=== PATIENT | female | born 1995 | race Caucasian/White ===

== ENCOUNTER → 2020-04-27 18:02 | Outpatient (BNVA) | payer BC, SELFPAY | PROVIDERS: Family Provider Family Medicine; PCP Family Medicine; Visit Provider Family Medicine | DX: N91.1 Secondary amenorrhea (principal); E03.9 Hypothyroidism, unspecified; Z13.1 Encounter for screening for diabetes mellitus; Z87.42 Personal history of other diseases of the female genital tract | CPT/HCPCS: 80048; 81000; 81025; 83001; 83002; 84146; 84403; 84443; 84450 ==

== ENCOUNTER 2020-05-18 12:46 | Outpatient (CLI) | payer BC, SELFPAY ==
--- NOTE | 2020-05-18 12:45 | US_ITS ---
WS: [id number] TRANSABDOMINAL PELVIC AND TRANSVAGINAL PELVIC ULTRASOUND HISTORY: 12 month no periods, last delivery 2 yrs ago, hx cyst COMPARISON: None available. Uterus: 8.0 cm x 3.7 cm x 2.7 cm. Normal size anteverted uterus. Endometrium: 1.1 cm. Normal homogeneity. Right ovary: 3.5 cm x 3.4 cm x 2.3 cm. Normal size ovaries. There are multiple small follicles throug hout the ovary. Normal vascularity. Left ovary: 3.1 cm x 2.2 cm x 4.0 cm. Normal size ovary with multiple small follicles. Follicles are less obvious within the LEFT ovary. Small amount of free fluid. US/US pelvic with transvaginal IMPRESSION: Numerous bilateral ovarian follicles less than a centimeter, RIGHT greater than LEFT. Ovaries remain normal size. Consider polycystic ovarian disease.
== END 2020-05-18 12:47 | disposition home or self-care (01) ==
LOC: RAD 12:48
PROVIDERS: PCP Family Medicine; Visit Provider Family Medicine
DX: N91.1 Secondary amenorrhea (principal); Z87.42 Personal history of other diseases of the female genital tract
CPT/HCPCS: 76830; 76856

== ENCOUNTER → 2020-06-07 16:00 | Outpatient (BNVA) | payer BC, SELFPAY | PROVIDERS: PCP Family Medicine; Visit Provider Family Medicine | DX: Z01.419 Encounter for gynecological examination (general) (routine) without abnormal findings (principal); E28.2 Polycystic ovarian syndrome; Z12.4 Encounter for screening for malignant neoplasm of cervix; N91.1 Secondary amenorrhea; Z13.1 Encounter for screening for diabetes mellitus; N36.8 Other specified disorders of urethra | CPT/HCPCS: 88175 ==

== ENCOUNTER → 2021-08-14 09:18 | Outpatient (BNVA) | payer OTHER, SELFPAY | PROVIDERS: PCP Family Medicine; Visit Provider Obstetrics & Gynecology | DX: E28.2 Polycystic ovarian syndrome (principal) | CPT/HCPCS: 76830 ==

== ENCOUNTER → 2021-08-30 11:25 | Outpatient (BNVA) | payer OTHER, SELFPAY | PROVIDERS: Visit Provider Obstetrics & Gynecology | DX: E28.2 Polycystic ovarian syndrome (principal) | CPT/HCPCS: 83520; 84144 ==

== ENCOUNTER → 2021-09-04 12:39 | Outpatient (BNVA) | payer OTHER, SELFPAY | PROVIDERS: Referring Provider Obstetrics & Gynecology; Visit Provider Obstetrics & Gynecology | DX: E28.2 Polycystic ovarian syndrome (principal) | CPT/HCPCS: 84144 ==

== ENCOUNTER → 2021-09-11 14:02 | Outpatient (BNVA) | payer OTHER, SELFPAY | PROVIDERS: Visit Provider Obstetrics & Gynecology | DX: E28.2 Polycystic ovarian syndrome (principal) | CPT/HCPCS: 84144 ==

== ENCOUNTER 2021-10-11 13:09 | Outpatient (CLI) | payer OTHER, BC, SELFPAY ==
--- NOTE | 2021-10-11 13:14 | FL_ITS ---
WS: [id number] HYSTEROSALPINGOGRAM The cervical opening was cannulated by the rn internship. Then under fluoroscopic guidance, water-solu ble contrast was injected in a retrograde fashion. CLINICAL INFORMATION: FEMALE INFERTILITY COMPARISON: None. FINDINGS: The uterus fills normally, with no evidence of contour abnormality, filling defect, septum, or strict ure. The bilateral uterine tubes are normal and patent with normal spillage of contrast into the polo toneum. FLUOROSCOPY TIME: 0.5 minutes. FL/FL hysterosalpingography [id number] IMPRESSION: Normal hysterosalpingogram.
[2021-10-11] MEDS: iohexol 300 mg/mL 50 mL Btl VAGINAL (14:01)
== END 2021-10-11 13:10 | disposition home or self-care (01) ==
PROVIDERS: PCP Obstetrics & Gynecology; Visit Provider Obstetrics & Gynecology
DX: N97.9 Female infertility, unspecified (principal)
CPT/HCPCS: 74740

== ENCOUNTER → 2022-05-02 09:16 | Outpatient (BNVA) | payer OTHER, SELFPAY | PROVIDERS: PCP Obstetrics & Gynecology; Visit Provider Obstetrics & Gynecology | DX: E28.2 Polycystic ovarian syndrome (principal) | CPT/HCPCS: 84443; 84702 ==